=== PATIENT | female | born 1985 | race American Indian/Alaskan Native ===

== ENCOUNTER 2016-05-01 21:44 | Outpatient (CLI) | payer MEDICAID ==
[2016-05-01] MEDS ORDERED: LACTATED RINGERS 1,000 ML IV ONE (21:55)
[2016-05-01 22:00] VITALS: BP 132/59
[2016-05-01 22:46] LABS: Bilirubin,Urine NEG (Negative); Blood,Urine NEG (Negative); Ketones,Urine NEG (Negative); Leukocyte Esterase,Urine NEG (Negative); Mucus,Urine 3+ /HPF; Nitrite,Urine NEG (Negative); Protein,Urine <15 mg/dL mg/dL (Negative); Urobilinogen,Urine < 2.0 mg/dL (<2.0)
[2016-05-01] MEDS ORDERED: LACTATED RINGERS 1,000 ML ONE (23:10)
== END 2016-05-02 00:23 | disposition home or self-care (01) ==
LOC: TRG 21:44
PROVIDERS: ATTEND Obstetrics & Gynecology
DX: O26.893 Other specified pregnancy related conditions, third trimester (principal); O99.513 Diseases of the respiratory system complicating pregnancy, third trimester; R06.89 Other abnormalities of breathing; R25.2 Cramp and spasm; Z3A.30 30 weeks gestation of pregnancy
CPT/HCPCS: 81001; 96360; J7120

== ENCOUNTER 2019-07-05 18:02 | Outpatient (CLI) | payer MEDICAID ==
[2019-07-05 19:21] LABS: Bacteria,Urine 1+ /HPF (Negative); Bilirubin,Urine NEG (Negative); Blood,Urine NEG (Negative); Color,Urine Amber (Yellow); Mucus,Urine 3+ /HPF; WBC,Urine > 182.0 /HPF (0.0-6.0)
[2019-07-05] MEDS ORDERED: LACTATED RINGERS 1,000 ML IV SCH (20:00)
[2019-07-05] MEDS ORDERED: ONDANSETRON 4 MG/2 ML INJ IV ONE (21:13)
[2019-07-05 23:19] VITALS: BP 104/53
== END 2019-07-05 23:48 | disposition home or self-care (01) ==
LOC: TRG 18:02 → APU 18:04 → TRG 23:48
PROVIDERS: ATTEND Obstetrics & Gynecology
DX: O26.892 Other specified pregnancy related conditions, second trimester (principal); R10.2 Pelvic and perineal pain; M54.5 Low back pain; O13.2 Gestational [pregnancy-induced] hypertension without significant proteinuria, second trimester; O99.512 Diseases of the respiratory system complicating pregnancy, second trimester; J45.909 Unspecified asthma, uncomplicated; Z3A.25 25 weeks gestation of pregnancy
CPT/HCPCS: 59025; 81001; 96361; 96365; J2405; J7120; 96360; 96374

== ENCOUNTER 2019-08-18 14:40 | Outpatient (CLI) | payer MEDICAID ==
[2019-08-18 15:07] VITALS: BP 113/74
[2019-08-18 15:32] LABS: Bacteria,Urine 1+ /HPF (Negative); Bilirubin,Urine NEG (Negative); Blood,Urine NEG (Negative); Color,Urine Yellow (Yellow); Mucus,Urine 2+ /HPF; Protein,Urine <15 mg/dL mg/dL (Negative)
[2019-08-18] MEDS ORDERED: LACTATED RINGERS 1,000 ML IV SCH (16:00)
[2019-08-18] MEDS ORDERED: LIDOCAINE-MPF (1%) 10 MG/1 ML VIAL 5 ML INFILTRATI ONE (16:38)
== END 2019-08-18 17:22 | disposition home or self-care (01) ==
LOC: TRG 14:40 → APU 14:42 → TRG 17:22
PROVIDERS: ATTEND Obstetrics & Gynecology
DX: O26.893 Other specified pregnancy related conditions, third trimester (principal); R10.9 Unspecified abdominal pain; O47.03 False labor before 37 completed weeks of gestation, third trimester; O99.513 Diseases of the respiratory system complicating pregnancy, third trimester; J45.909 Unspecified asthma, uncomplicated; O13.3 Gestational [pregnancy-induced] hypertension without significant proteinuria, third trimester; Z3A.32 32 weeks gestation of pregnancy
CPT/HCPCS: 59025; 81001; 96372; J0696

== ENCOUNTER 2019-09-06 16:51 | Outpatient (CLI) | payer MEDICAID ==
[2019-09-06 17:59] LABS: Bacteria,Urine 1+ /HPF (Negative); Bilirubin,Urine NEG (Negative); Blood,Urine NEG (Negative); Color,Urine Yellow (Yellow); Mucus,Urine 2+ /HPF; Protein,Urine <15 mg/dL mg/dL (Negative); Urobilinogen,Urine < 2.0 mg/dL (<2.0)
[2019-09-06] MEDS ORDERED: LACTATED RINGERS 1,000 ML IV SCH (18:00)
[2019-09-06 18:03] LABS: Amphetamine Screen,Urine PRESUMPTIVE NEGATIVE; Benzodiazepines Screen,Urine PRESUMPTIVE NEGATIVE; Cannabinoid Screen,Urine PRESUMPTIVE NEGATIVE; Cocaine Screen,Urine PRESUMPTIVE NEGATIVE; Methadone Screen,Urine PRESUMPTIVE NEGATIVE; Opiate Screen,Urine PRESUMPTIVE NEGATIVE
[2019-09-06] MEDS ORDERED: LIDOCAINE-MPF (1%) 10 MG/1 ML VIAL 5 ML INFILTRATI ONE (18:41)
[2019-09-06 19:30] VITALS: BP 115/66
== END 2019-09-06 20:09 | disposition home or self-care (01) ==
LOC: APU 16:51 → TRG 16:51
PROVIDERS: ATTEND Obstetrics & Gynecology
DX: O26.893 Other specified pregnancy related conditions, third trimester (principal); R10.30 Lower abdominal pain, unspecified; O47.03 False labor before 37 completed weeks of gestation, third trimester; O13.3 Gestational [pregnancy-induced] hypertension without significant proteinuria, third trimester; O99.513 Diseases of the respiratory system complicating pregnancy, third trimester; J45.909 Unspecified asthma, uncomplicated; Z3A.34 34 weeks gestation of pregnancy
CPT/HCPCS: 59025; 80307; 81001; 87086; 96372; J0696

== ENCOUNTER 2019-11-30 06:55 | Day surgery (SDC) | payer MEDICAID ==
[2019-11-28 10:27] LABS: Hematocrit 35.5 % (30.3-42.9); Hemoglobin 11.3 gm/dl (10.1-14.3); Mean Corpuscular HGB Conc 32 % (30-34); Mean Corpuscular Volume 74 fl (79-97); Platelet Count 365 K/mm3 (140-440); Red Blood Count 4.81 M/mm3 (3.65-5.03); Red Cell Distribution Width 16.1 % (13.2-15.2)
[~2019-11-30 06:55] MED LIST: ACETAMINOPHEN 500 MG TAB PO SCH; GABAPENTIN 300 MG CAP PO NR; LACTATED RINGERS 1,000 ML IV SCH; MIDAZOLAM 2 MG/2 ML INJ IV NR
--- NOTE | 2019-11-30 07:22 | Anesthesia Consultation ---
Anesthesia Consult and Med Hx Date of service: 11/30/19 - Airway Anesthetic Teeth Evaluation: Good ROM Head & Neck: Adequate Mental/Hyoid Distance: Adequate Mallampati Class: Class I Intubation Access Assessment: Good - Pulmonary Exam CTA: Yes - Cardiac Exam Cardiac Exam: RRR - Pre-Operative Health Status ASA Pre-Surgery Classification: ASA3 Proposed Anesthetic Plan: General - Pulmonary Hx Smoking: No Hx Respiratory Symptoms: No - Cardiovascular System Hx Hypertension: Yes (took labetalol this morning) Hx Heart Attack/AMI: No Hx Percutaneous Transluminal Coronary Angioplasty (PTCA): No Hx Cardia Arrhythmia: No - Central Nervous System CVA: No - Endocrine Hx Renal Disease: No Hx Liver Disease: No Hx Insulin Dependent Diabetes: No Hx Non-Insulin Dependent Diabetes: No Hx Thyroid Disease: No - Other Systems Hx Obesity: Yes (BMI 52) - Additional Comments Anesthesia Medical History Comments: No hx anesthetic complications.
[2019-11-30] MEDS ORDERED: fentaNYL 100 MCG/2 ML INJ IV PRN (07:23)
--- NOTE | 2019-11-30 07:23 | Anesthesia Day of Surgery ---
Anesthesia Day of Surgery - Day of Surgery Patient Examined: Yes Patient H&P Reviewed: Yes Patient is NPO: Yes Beta Blockers: Yes (labetalol today AM)
--- NOTE | 2019-11-30 07:24 | History and Physical Report ---
History of Present Illness Date of examination: 11/30/19 Chief complaint: Undesired Fertility History of present illness: Pt is a 34 year old -[place] female who presents for surgical sterilization. She is aware of long acting reversible contraceptive methods and tubal ligation and desires to proceed with salpingectomy. 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 History: herpes, trichomonas (remote history ) Family/Genetic History: hypertension, cancer Social history: no significant social history - Obstetrical History : 6 Para: 4 Hx # Term Pregnancies: 4 Number of Pregnancies: 0 Spontaneous Abortions: 2 Induced : 0 Number of Living Children: 4 Medications and Allergies Allergies Allergy/AdvReac Type Severity Reaction Status Date / Time No Known Allergies Allergy Verified 11/23/19 15:09 Home Medications Medication Instructions Recorded Confirmed Last Taken Type Valacyclovir HCl [Valtrex] 500 mg PO DAILY PRN 07/07/16 11/23/19 09/20/19 21:00 History labetaloL [Labetalol 200mg TAB] 200 mg PO BID #60 tablet 09/25/19 11/23/19 Unknown Rx Active Meds: Active Medications Acetaminophen (Tylenol) 1,000 mg PO PREOP KAM Gabapentin (Gabapentin) 300 mg PO PREOP NR Stop: 11/30/19 23:59 Cefazolin Sodium 3 gm/ Sodium (Chloride) 100 mls @ 100 mls/30 min IV PREOP NR; Protocol Stop: 11/30/19 22:00 Lactated Ringer's (Lactated Ringers) 1,000 mls @ 100 mls/hr IV DIRECT KAM Stop: 11/30/19 23:59 Midazolam HCl (Versed) 2 mg IV PREOP NR Stop: 11/30/19 23:59 Review of Systems All systems: negative - Vital Signs Vital signs: Vital Signs Temp Pulse Resp BP Pulse Ox 98.2 F 70 20 158/95 100 11/28/19 09:26 11/28/19 09:26 11/28/19 09:26 11/28/19 09:26 11/28/19 09:26 Temp Pulse Resp BP Pulse Ox 98.2 F 70 20 158/95 100 11/28/19 09:26 11/28/19 09:26 11/28/19 09:26 11/28/19 09:26 11/28/19 09:26 - Physical Exam Breasts: Positive: deferred Abdomen: Positive: soft (obese ) Extremities: Positive: normal Results Result Diagrams: 11/28/19 09:30 All other labs normal. Assessment and Plan A: Undesired Fertility Morbid Obesity Hypertension Asthma Migraines P: Proceed with laparoscopic bilateral salpingectomy and other indicated procedures
[2019-11-30] MEDS ORDERED: BUPIVACAINE/PF (0.5%) 5 MG/1 ML 30 ML VIAL INFILTRATI ONE ×2 (07:44→08:46)
[2019-11-30] MEDS ORDERED: propofoL 200 MG/20 ML VIAL IV ONE (07:50)
[2019-11-30] MEDS ORDERED: LIDOCAINE-MPF (0.5%) 5 MG/1 ML VIAL 50 ML INFILTRATI ONE (07:50)
[2019-11-30] MEDS ORDERED: ROCURONIUM 50 MG/5 ML INJ IV ONE (07:50)
[2019-11-30] MEDS ORDERED: fentaNYL 100 MCG/2 ML INJ ONE (07:50)
[2019-11-30] MEDS ORDERED: SODIUM CHLORIDE 0.9% IRR 1,500 ML BOTTLE IR ONE (08:46)
[2019-11-30] MEDS ORDERED: NEOSTIGMINE 10MG/10 ML INJ MDV ONE (08:54)
[2019-11-30] MEDS ORDERED: GLYCOPYRROLATE 0.4 MG/2 ML INJ ONE (08:54)
[2019-11-30] MEDS ORDERED: KETOROLAC 30 MG/1 ML INJ ONE (09:01)
[2019-11-30] MEDS ORDERED: dexAMETHasone 20 MG/5 ML VIAL ONE (09:01)
[2019-11-30] MEDS ORDERED: ONDANSETRON 4 MG/2 ML INJ ONE (09:01)
--- NOTE | 2019-11-30 09:29 | Operative Report ---
Operative Report Operative Report: Date of Surgery: November 30, 2019 Preoperative Diagnosis: 1) Undesired Fertility 2) Morbid Obesity BMI 52 Postoperative Diagnosis: Same 3) Omental Adhesions to the parietal peritoneum Procedure: 1) Laparoscopic Bilateral Salpingectomy 2) Lysis of Adhesions Surgeon: Valentine Olsen MD Size Mixer: Margie Mora MD Anesthesia: GETA Findings: 1) Small anteroverted uterus 2) Normal appearing uterus, ovaries and tubes 3) Large omental adhesion to the parietal peritoneum EBL: Less than 25 mL Urine output: 200 mL Specimen: Bilateral fallopian tubes to pathology Complications: None. Counts correct x 2 Disposition: Stable to PACU Indication for Procedure: This pt is a 34 year old female who presents for surgical sterilization. She is aware of long acting reversible contraceptives as well as tubal ligation and she desires to proceed with bilateral salpingectomy. Operation In Detail: After the risks, benefits, complications and alternatives were explained to the patient, she gave informed consent for the procedure. She was then taken to the operating room and placed in the dorsal supine position with her IV noted to be running well and SCDs in place and functioning. General endotracheal anesthesia was induced without difficulty. The patient was then placed in the dorsal litho [place] position and prepped and draped in a normal sterile fashion. A time out was then performed. An exam under anesthesia revealed a small antevereted uterus. A arzate catheter was placed. A bi-valve speculum was placed in the vagina to visualize the cervix. A single tooth tenaculum was placed on the anterior lip of the cervix for traction. A uterine manipulator was then placed. The speculum and tenaculum were removed from the vagina atraumatically. The surgeon's gloves were then changed. Attention was then turned to entry into the abdominal cavity. A 5 mm infraumbilical incision was made with an 11 blade. The skin was grasped on either side of the umbilicus with towel clips and tented up. The Veres needle was placed into the peritoneal cavity, confirmed with a saline drop test. The abdomen was then insufflated with CO2 gas to a pressure of 15 mmHg. A 5 mm Visiport trocar was then placed. An anatomic survey was then performed with findings as indicated above. A second trocar site was created 2 cm superior to the pubic symphysis in the midline measuring 8 mm. An 8 mm trocar was then placed under direct visualization. A third 5 mm trocar was placed in the LLQ under direct visualization. The patient was placed in the Trendelenburg position. A large omental adhesion to the parietal peritoneum was noted to obscure the view of the uterus. This adhesion was lysed with the Ligasure device. The uterus was elevated, and each fallopian tube was followed out to the fimbriae, grasped with a grasper for visualization, and excised using a 5 mm Ligasure device. Both fallopian tubes were removed through the 8 mm port and sent to pathology. At this time, all instruments and trocars were removed from the abdominal cavity. The pneumoperitoneum was released. The incisions were then infiltrated with half percent Marcaine. The incisions were then reapproximated with 4-0 Vicryl in a subcuticular fashion. They were then covered with skin glue. All instruments were then removed atraumatically from the vagina, and the arzate catheter was removed. At this time the procedure was ended. The patient was placed into the dorsal supine position and extubated without difficulty. She was subsequently taken to the PACU in stable condition. All instrument, needle and lap counts were correct 2.
--- NOTE | 2019-11-30 09:30 | Short Stay Summary ---
Short Stay Documentation Date of service: 11/30/19 - History H&P: dictated Social history: no significant social history - Allergies and Medications Current Medications: Allergies No Known Allergies Allergy (Verified 11/23/19 15:09) Home Medications Medication Instructions Recorded Confirmed Last Taken Type Valacyclovir HCl [Valtrex] 500 mg PO DAILY PRN 07/07/16 11/30/19 11/27/19 09:00 History labetaloL [Labetalol 200mg TAB] 200 mg PO BID #60 tablet 09/25/19 11/30/19 11/30/19 05:00 Rx Active Medications Acetaminophen (Tylenol) 1,000 mg PO PREOP KAM Last Admin: 11/30/19 07:15 Dose: 1,000 mg Documented by: Fentanyl (Sublimaze) 50 mcg IV Q5MIN PRN PRN Reason: Pain , Severe (7-10) Stop: 11/30/19 23:00 Gabapentin (Gabapentin) 300 mg PO PREOP NR Stop: 11/30/19 23:59 Last Admin: 11/30/19 07:15 Dose: 300 mg Documented by: Cefazolin Sodium 3 gm/ Sodium (Chloride) 100 mls @ 100 mls/30 min IV PREOP NR; Protocol Stop: 11/30/19 22:00 Lactated Ringer's (Lactated Ringers) 1,000 mls @ 100 mls/hr IV DIRECT KAM Stop: 11/30/19 23:59 Last Admin: 11/30/19 07:45 Dose: 100 mls/hr Documented by: Midazolam HCl (Versed) 2 mg IV PREOP NR Stop: 11/30/19 23:59 Last Admin: 11/30/19 07:45 Dose: 2 mg Documented by: - Physical exam Breasts: deferred - Brief post op/procedure progress note Date of procedure: 11/30/19 Pre-op diagnosis: Undesired Fertility, Morbid Obesity Post-op diagnosis: other (Omental adhesion) Procedure: Laparoscopic bilateral salpingectomy, Lysis of Adhesions Anesthesia: GETA Findings: 1) Small anteroverted uterus 2) Normal appearing uterus, ovaries and tubes 3) Large omental adhesion to the parietal peritoneum Surgeon: MEGHA PALMER Painting Manager: VANESSA ULLOA Estimated blood loss: minimal (less than 25 ml) Pathology: list (bialteral fallopian tubes) Specimen disposition: to lab Condition: stable - Hospital course Hospital course: Pt underwent laparoscopic bilateral salpingectomy and lyis of adhesions which she tolerated well. She was observed in the PACU until she met discharge criteria. She will follow up in 2 wks for an incision check. - Disposition Condition at discharge: Stable Disposition: DC-[id number] TO HOME OR SELFCARE - Discharge Diagnoses (1) Hypertension Status: Acute Qualifiers: Hypertension type: unspecified Qualified Code(s): I10 - Essential (primary) hypertension (2) Asthma Status: Acute Qualifiers: Asthma severity: unspecified severity Asthma persistence: unspecified Asthma complication type: unspecified Qualified Code(s): J45.909 - Unspecified asthma, uncomplicated (3) Encounter for sterilization Status: Acute (4) Status post bilateral salpingectomy Status: Acute (5) Morbid obesity Status: Acute Short Stay Discharge Plan Activity: other (Nothing per vagina, no tub baths for 4 weeks ) Weight Bearing Status: Full Weight Bearing Diet: regular Wound: keep clean and dry Follow up with: PRIMARY MD NISHANT [Primary Care Provider] - 7 Days MEGHA PALMER MD [Staff Physician] - 12/14/19 (Please call to schedule appt for incision check ) Prescriptions: Ibuprofen [Motrin] 800 mg PO Q8HR PRN #30 tablet PRN Reason: Pain, Moderate (4-6) oxyCODONE /ACETAMINOPHEN [Percocet 5/325] 1 tab PO Q6HR PRN #30 tablet PRN Reason: Pain
[2019-11-30 11:06] VITALS: BP 157/89
--- NOTE | 2019-11-30 13:50 | Post Anesthesia Evaluation ---
- Post Anesthesia Evaluation Patient Participated: Yes Airway Patent: Yes Stable Respiratory Function: Yes Nausea/Vomiting: No Temp > 96.8F: Yes Pain Manageable: Yes Adequeate Hydration: Yes Anesthesia Complications: No
== END 2019-11-30 11:00 | disposition home or self-care (01) ==
LOC: OR 06:55
PROVIDERS: ATTEND Obstetrics & Gynecology
DX: Z30.2 Encounter for sterilization (principal); Z20.828 Contact with and (suspected) exposure to other viral communicable diseases; E66.01 Morbid (severe) obesity due to excess calories; K66.0 Peritoneal adhesions (postprocedural) (postinfection); I10 Essential (primary) hypertension; J45.909 Unspecified asthma, uncomplicated; Z98.891 History of uterine scar from previous surgery; Z79.899 Other long term (current) drug therapy; Z68.43 Body mass index [BMI] 50.0-59.9, adult; Z90.79 Acquired absence of other genital organ(s); Z72.89 Other problems related to lifestyle; Z80.8 Family history of malignant neoplasm of other organs or systems; Z82.49 Family history of ischemic heart disease and other diseases of the circulatory system
CPT/HCPCS: 36415; 58661; 84703; 85027; 86850; 86900; 86901; 88302; J0690; J1100; J1885; J2250; J2405; J2704; J2710; J3010; J7120; U0003

== ENCOUNTER 2020-02-22 05:47 | Day surgery (SDC) | payer MEDICAID ==
[2020-02-16 10:59] LABS: Basophils # (Auto) 0.1 K/mm3 (0.0-0.1); Basophils % (Auto) 0.7 % (0.0-1.8); Eosinophils # (Auto) 0.4 K/mm3 (0.0-0.4); Eosinophils % (Auto) 5.6 % (0.0-4.3); Hematocrit 38.2 % (30.3-42.9); Hemoglobin 11.8 gm/dl (10.1-14.3); Lymphocytes % (Auto) 40.9 % (13.4-35.0); Mean Corpuscular HGB Conc 31 % (30-34); Mean Corpuscular Volume 74 fl (79-97); Monocytes # (Auto) 0.5 K/mm3 (0.0-0.8); Monocytes % (Auto) 7.3 % (0.0-7.3); Platelet Count 407 K/mm3 (140-440); Red Blood Count 5.18 M/mm3 (3.65-5.03); Red Cell Distribution Width 16.1 % (13.2-15.2)
--- NOTE | 2020-02-16 11:32 | Anesthesia Consultation ---
Anesthesia Consult and Med Hx Date of service: 02/22/20 - Airway Anesthetic Teeth Evaluation: Chipped (Broken) ROM Head & Neck: Adequate Mental/Hyoid Distance: Adequate Mallampati Class: Class II Intubation Access Assessment: Good - Pre-Operative Health Status ASA Pre-Surgery Classification: ASA3 Proposed Anesthetic Plan: General Nerve Block: TAP - Pulmonary Hx Asthma: Yes (last attack 3 months ago) Hx Respiratory Symptoms: No (+2FS) - Cardiovascular System Hx Hypertension: Yes Hx Cardia Arrhythmia: No - Central Nervous System Hx Neuromuscular Disorder: No (migraine, bilateral leg pain) Hx Psychiatric Problems: No - Gastrointestinal Hx Ulcer: No Hx Gastroesophageal Reflux Disease: Yes - Endocrine Hx Renal Disease: No Hx Insulin Dependent Diabetes: No Hx Non-Insulin Dependent Diabetes: No Hx Thyroid Disease: No - Hematic Hx Sickle Cell Disease: No - Other Systems Hx Alcohol Use: Yes (Occas) Hx Cancer: No Hx Obesity: Yes (Morbid)
[2020-02-22] MEDS ORDERED: ACETAMINOPHEN 500 MG TAB PO SCH (06:00)
[2020-02-22] MEDS ORDERED: MAGNESIUM OXIDE 400 MG TAB PO SCH (06:00)
[2020-02-22] MEDS ORDERED: CELECOXIB 200 MG CAP PO NR (06:00)
[2020-02-22] MEDS ORDERED: LACTATED RINGERS 1,000 ML IV SCH (06:00)
[2020-02-22] MEDS ORDERED: fentaNYL 100 MCG/2 ML INJ IV SCH (06:00)
[2020-02-22] MEDS ORDERED: GABAPENTIN 300 MG CAP PO NR (06:00)
[2020-02-22] MEDS ORDERED: MIDAZOLAM 2 MG/2 ML INJ IV NR (06:00)
[2020-02-22] MEDS ORDERED: BUPIVACAINE-EPINEPHRINE/PF 0.25%-1:200,000 (30 ML) VIAL INFILTRATI ONE (06:57)
[2020-02-22] MEDS ORDERED: cloNIDine/PF 1,000 MCG/10 ML VIAL EP ONE (06:57)
[2020-02-22] MEDS ORDERED: dexAMETHasone 4 MG/ML VIAL ONE (06:57)
--- NOTE | 2020-02-22 07:08 | History and Physical Report ---
History of Present Illness Date of examination: 02/22/20 Date of admission: February 22, 2020 Chief complaint: Dysfunctional uterine bleeding History of present illness: 34-year-old with a history of dysfunctional uterine bleeding. The patient attempted medical management without significant improvement in her symptoms. The patient is elected to undergo definitive surgical management. Past History Past Medical History: asthma, hypertension, other (Morbid obesity;) Past Surgical History: section, other (Tubal ligation) Social history: single - Obstetrical History : 6 Para: 4 Hx # Term Pregnancies: 4 Number of Pregnancies: 0 Spontaneous Abortions: 2 Induced : 0 Number of Living Children: 4 Medications and Allergies Allergies Allergy/AdvReac Type Severity Reaction Status Date / Time No Known Allergies Allergy Verified 02/14/20 09:08 Home Medications Medication Instructions Recorded Confirmed Last Taken Type Valacyclovir HCl [Valtrex] 500 mg PO DAILY PRN 07/07/16 02/14/20 11/27/19 09:00 History labetaloL [Labetalol 200mg TAB] 200 mg PO BID #60 tablet 09/25/19 02/14/20 11/30/19 05:00 Rx Ibuprofen [Motrin] 800 mg PO Q8HR PRN #30 tablet 11/30/19 02/14/20 Unknown Rx Albuterol Sulfate [Proventil Hfa] 2 puff IH Q4H PRN 02/16/20 02/16/20 Unknown History Active Meds: Active Medications Acetaminophen (Acetaminophen 500 Mg Tab) 1,000 mg PO ONCE KAM Stop: 02/22/20 21:00 Celecoxib (Celecoxib 200 Mg Cap) 400 mg PO PREOP NR Stop: 02/22/20 21:00 Fentanyl (Fentanyl 100 Mcg/2 Ml Inj) 100 mcg IV ONCE KAM Stop: 02/22/20 21:00 Gabapentin (Gabapentin 300 Mg Cap) 600 mg PO PREOP NR Stop: 02/22/20 21:00 Lactated Ringer's (Lactated Ringers) 1,000 mls @ 125 mls/hr IV DIRECT KAM Magnesium Oxide (Magnesium Oxide 400 Mg Tab) 400 mg PO ONCE KAM Stop: 02/22/20 21:00 Midazolam HCl (Midazolam 2 Mg/2 Ml Inj) 2 mg IV PREOP NR Stop: 02/22/20 23:59 Review of Systems All systems: negative Genitourinary: vaginal bleeding - Vital Signs Vital signs: Vital Signs Temp Pulse Resp BP Pulse Ox 98.4 F 74 20 176/101 99 02/16/20 10:30 02/16/20 10:30 02/16/20 10:30 02/16/20 10:30 02/16/20 10:30 Temp Pulse Resp BP Pulse Ox 98.4 F 74 20 176/101 99 02/16/20 10:30 02/16/20 10:30 02/16/20 10:30 02/16/20 10:30 02/16/20 10:30 - Physical Exam Breasts: Positive: deferred Cardiovascular: Regular rate Lungs: Positive: Clear to auscultation Abdomen: Positive: normal appearance Results Result Diagrams: 02/16/20 10:35 All other labs normal. Assessment and Plan - Patient Problems (1) Dysfunctional uterine bleeding Current Visit: Yes Status: Acute Plan to address problem: Patient is scheduled for robotic hysterectomy (2) Dysmenorrhea Current Visit: Yes Status: Acute
[2020-02-22] MEDS ORDERED: ONDANSETRON 4 MG/2 ML INJ IV PRN (07:16)
[2020-02-22] MEDS ORDERED: HYDROmorphone 1 MG/1 ML INJ IV PRN (07:16)
--- NOTE | 2020-02-22 07:16 | Anesthesia Day of Surgery ---
Anesthesia Day of Surgery - Day of Surgery Patient Examined: Yes Patient H&P Reviewed: Yes Patient is NPO: Yes Beta Blockers: Yes (labetalol today AM)
--- NOTE | 2020-02-22 07:17 | Progress Note ---
Regional Anesthesia Block - Regional Anesthesia Block Start Time: 07:01 Stop Time: 07:11 Performed By:: CRAIG PATEL Procedure: Bilateral Ultrasound Guided TAP Block Pt IDd, consent obtained, time out performed. Pt on monitor + O2 via NC, VS stable, sedation given per pre-op RN. Sterile prep. Landmarks identified with ultrasound. [1.5]cc skin wheel with 1% lidocaine. Needle advance in plane with ultrasound. [30]cc [0.25]% bupivacaine [w/ epi] + [4]mg decadron + [100]mcg clonidine injected incrementally with negative aspiration. Procedure repeated on opposite side. Pt tolerated procedure well, no immediate complications noted.
[2020-02-22] MEDS ORDERED: NEOMY 40 MG/POLYMYXIN B 200,000 UNITS/ML (GU) AMPULE IR ONE ×2 (07:23→08:54)
[2020-02-22] MEDS ORDERED: ROCURONIUM 50 MG/5 ML INJ IV ONE (07:25)
[2020-02-22] MEDS ORDERED: HYDROmorphone 1 MG/1 ML INJ ONE (07:25)
[2020-02-22] MEDS ORDERED: dexAMETHasone 20 MG/5 ML VIAL ONE (07:25)
[2020-02-22] MEDS ORDERED: LIDOCAINE MPF (2%) 20 MG/1 ML VIAL 5 ML ONE (07:25)
[2020-02-22] MEDS ORDERED: propofoL 200 MG/20 ML VIAL IV ONE (07:25)
[2020-02-22] MEDS ORDERED: ONDANSETRON 4 MG/2 ML INJ ONE (07:25)
[2020-02-22] MEDS ORDERED: SODIUM CHLORIDE 0.9% IRR 1,500 ML BOTTLE IR ONE (08:54)
[2020-02-22] MEDS ORDERED: SODIUM CHLORIDE 0.9% IRRIG SOLN 2000 ML IR ONE (08:55)
[2020-02-22] MEDS ORDERED: NEOSTIGMINE 10MG/10 ML INJ MDV ONE (09:14)
[2020-02-22] MEDS ORDERED: GLYCOPYRROLATE 0.4 MG/2 ML INJ ONE (09:14)
--- NOTE | 2020-02-22 09:14 | Operative Report ---
Operative Report Operative Report: Date of surgery: February 22, 2020 Preoperative diagnoses: Dysfunctional uterine bleeding Postoperative diagnoses: Same as above Procedure: Robotic hysterectomy; Surgeon: Margie Mora M.D. Metal Miner: Jacqueline Olsen Anesthesia: Gen. endotracheal anesthesia Estimated blood loss: 50 mL Pathology: Uterus and cervix Indication: 34-year-old -0-2-4 with a history of dysfunctional uterine bleeding that has been unresponsive to medical management. The patient has a surgical history of a prior salpingectomy. She is elected to undergo definitive surgical management. Procedure: The patient was taken to the operating room and given general endotracheal anesthesia without complication after a time out was performed confirming the surgery and identity of the patient. She was prepped and draped in a normal sterile fashion. A bivalve speculum was placed in the patient's vagina and a single-tooth tenaculum placed on the anterior lip of the cervix. The uterus was sounded with the uterine sound. A stay suture with 0-vicryl was placed at 12 o'clock on the anterior cervix. A anchor.travel uterine manipulator was placed in the bivalve speculum was then removed. A warm laparotomy sponge was placed in the vagina. Attention was then turned to the patient's abdomen where a 12millimeter supra umbilical skin incision was then made. A Veress needle was placed and peritoneal entry was verified water-filled syringe. Insufflation of the peritoneal cavity was performed with CO2 gas. The 12 mm trocar was then placed under direct visualization. An additional 8 mm robotic trocar was placed on the patient's left and right lateral side just opposite of the supraumbilical trocar. An additional 5 mm right lateral trocar was then placed as the accessory port. The supraumbilical 12 mm trocar site was closed with the Vinay Crenshaw device and 0-vicryl suture. The patient was then placed in steep Trendelenburg. The da Vic robot was then engaged. A fenestrated forcep was placed in arm 2 and a vessel sealer was placed in arm 1. General survey of the abdomen and pelvis revealed a mildly enlarged uterus with surgically absent tubes bilaterally. The ovaries were normal in appearance. The surgeon then transferred to the surgical console. The tubo-ovarian ligament was then coagulated and transected. The round ligament was then coagulated and transected also. The vesicouterine peritoneum was then entered from the patient's right side. The uterine vessels were then coagulated with the vessel sealer. The vessels were then transected . Attention was then turned to the patient's left side where the tubo-ovarian ligament and mesosalpinx were again isolated coagulated and transected. The vesical peritoneum was then entered from the left and joined in the midline. Peritoneum was reflected off of the lower uterine segment. Uterine vessels were then coagulated and then transected. The blood supply to the uterus was adequately contained, a posterior colpotomy was made. The V care ring was visualized. Posterior colpotomy was created with the monopolar scissors. The incision was continued circumferentially until anterior colpotomy was made. The cervix and uterus were amputated from the vaginal cuff. The uterus was then removed along with the tubes bilaterally through the vagina and a warm laparotomy sponge was placed and maintain the pneumoperitoneum. The vaginal cuff was then closed in a running fashion with V lock suture. Irrigation of the pelvis was performed. Hemoblast was applied to the incision. The [employer] robot was undocked. The trocars were removed and the insuffliation was released. The skin was then reapproximated with 4-0 Monocryl. The tissue was sent to pathology which included the cervix, bilateral tubes and uterus. The patient was then successfully extubated. She was then taken to the recovery room in stable condition. All sponge laps and needle counts were correct x2.
[2020-02-22] MEDS ORDERED: LACTATED RINGERS 1,000 ML ONE (09:26)
[2020-02-22 12:57] VITALS: BP 148/78
== END 2020-02-22 13:40 | disposition home or self-care (01) ==
LOC: OR 05:47
PROVIDERS: ATTEND Obstetrics & Gynecology
DX: N93.8 Other specified abnormal uterine and vaginal bleeding (principal); Z20.828 Contact with and (suspected) exposure to other viral communicable diseases; N84.0 Polyp of corpus uteri; E66.01 Morbid (severe) obesity due to excess calories; I10 Essential (primary) hypertension; J45.909 Unspecified asthma, uncomplicated; K21.9 Gastro-esophageal reflux disease without esophagitis; Z98.51 Tubal ligation status; Z90.79 Acquired absence of other genital organ(s); Z79.899 Other long term (current) drug therapy; Z72.89 Other problems related to lifestyle; Z80.8 Family history of malignant neoplasm of other organs or systems; Z98.891 History of uterine scar from previous surgery; Z68.43 Body mass index [BMI] 50.0-59.9, adult; Z82.49 Family history of ischemic heart disease and other diseases of the circulatory system
CPT/HCPCS: 36415; 58550; 84703; 85025; 86850; 86900; 86901; 88307; A4217; J0690; J0735; J1100; J1170; J2250; J2405; J2704; J2710; J3010; J7120; S2900; U0003; 64450